=== PATIENT | female | born 1975 | race Caucasian/White ===

== ENCOUNTER → 2023-03-07 | Outpatient (CLI) | payer OTHER ==
--- NOTE | 2023-03-07 08:29 | US ---
EXAMINATION TYPE: US abdomen complete DATE OF EXAM: 03/07/2023 COMPARISON: NONE CLINICAL HISTORY: R94.5 ABNORMAL RESULTS OF LIVER FUNCTION STUDIES. Elevated liver enzymes TECHNIQUE: Multiple sonographic images of the abdomen are obtained. FINDINGS: EXAM MEASUREMENTS: Liver Length: 16.8 cm Gallbladder Wall: 0.2 cm CBD: 0.4 cm Spleen: 9.8 cm Right Kidney: 11.0 x 5.4 x 5.5 cm Left Kidney: 10.3 x 4.9 x 4.6 cm [place] MATE NOTES: technical limitations due to large amount of overlying bowel content Pancreas: Obscured by bowel gas Liver: visualized portions appear slightly heterogenous Gallbladder: no evidence of stones Evidence for sonographic Lopez's sign: no CBD: limited evaluation Spleen: wnl Right Kidney: no evidence of hydronephrosis Left Kidney: lobulated contour posterior upper pole Upper IVC: wnl Abd Aorta: visualized portions appear wnl, proximal obscured The liver is hyperechoic and heterogenous without focal lesion. The intrahepatic portion of the IVC a nd visualized abdominal aorta are within normal limits. The proximal portion of the abdominal aorta is obscured due to overlying bowel gas. There is no evidence of cholelithiasis. Common bile duct is unremarkable. The visualized portions of the pancreas are homogenous. The spleen is unremarkable. Kidneys are symmetric and free of hydronephrosis. No renal lesions are seen. IMPRESSION: 1. No ultrasound evidence for acute process. 2. Hepatic steatosis without focal lesion.
== END | disposition home or self-care (01) ==
LOC: RADUSWWP 07:00
PROVIDERS: ATTEND Family Medicine
DX: K76.0 Fatty (change of) liver, not elsewhere classified (principal); R94.5 Abnormal results of liver function studies
CPT/HCPCS: 76700

== ENCOUNTER → 2025-05-27 | Outpatient (CLI) | payer OTHER ==
--- NOTE | 2025-05-27 11:52 | MM ---
Reason for Exam: Screening (asymptomatic). Patient History: Menarche at age 16. First Full-Term at age 20. Premenopausal. Maternal aunt had breast cancer, age 70. Risk Values: Radha 5 year model risk: 0.6%. NCI Lifetime model risk: 6.1%. Tissue Density: The breasts are heterogeneously dense, which may obscure small masses. Findings: Analyzed By CAD. Right breast: There is no suspicious group of microcalcifications or new suspicious mass. Left breast: There is no suspicious group of microcalcifications or new suspicious mass. Overall Assessment: Negative, BI-RAD 1 Management: Screening Mammogram of both breasts in [address] [facility] will attempt to contact patient to return for supplemental views and ultrasound if indicated. Patient should continue monthly self-breast exams. A clinical breast exam by your physician is recommended on an annual basis. This exam should not preclude additional follow-up of suspicious palpable abnormalities. Note on Radha scores and lifetime risk: 1. A Radha score greater than 3% is considered moderate risk. If this is the case, consider specialist referral to assess eligibility for a risk reducing agent. 2. If overall lifetime risk for the development of breast cancer is 20% or higher, the patient may qualify for future screening with alternating mammogram and breast MRI. [facility], , 05/27/2025 11:50 AM. Electronically signed and approved by: Rodolfo Child DO
== END | disposition home or self-care (01) ==
LOC: RADMAMWWP 11:15
PROVIDERS: ATTEND Family Medicine
DX: Z12.31 Encounter for screening mammogram for malignant neoplasm of breast (principal); R92.333 Mammographic heterogeneous density, bilateral breasts; Z80.3 Family history of malignant neoplasm of breast
CPT/HCPCS: 77067